=== PATIENT | female | born 1945 | race Caucasian/White ===

== ENCOUNTER 2017-05-06 10:33 | Emergency (ER) | payer MEDICARE, OTHER ==
--- NOTE | 2017-05-07 03:44 | ER ---
DATE SEEN: 05/06/2017 HISTORY OF PRESENT ILLNESS: Kelly has had severe pain in her left mandible. It progressively got worse in the last week. She has been seen by an ENT specialist this week, and they put her on Augmentin plus steroid drops in her ears plus otic drops. She denies fever. She has not changed. She denies dizziness. In the past, she has also been seen by several other specialists and had CAT scans, as they thought perhaps she might have mastoiditis and it was negative. She has not had ear surgery. No history of trauma to her ear. PAST MEDICAL HISTORY: No history of high temperature. ALLERGIES: The patient denies allergies or seasonal allergies. CURRENT MEDICATIONS: 1. Augmentin. 2. Cipro ear drops. 3. Dexamethasone ear drops. 4. P.o. Augmentin 875 mg b.i.d. 5. She takes losartan daily. From today's notes, her blood pressure is elevated and became more concerned. She has extensive pain with 8/10 discomfort in the left external ear and left ear pain. PAST SURGICAL HISTORY: Negative. REVIEW OF SYSTEMS: Negative except for noted above. The patient wears glasses and has slight decreased hearing. She denies dizziness, flushing of her face. CARDIAC: She denies cardiovascular symptoms. She has had no cough, no chest pain, no irregular rate or heartbeat. GASTROINTESTINAL/NEUROLOGIC: No nausea, vomiting, lightheadedness, syncope, near syncope, or dizziness. She denies abdominal discomfort. Denies vomiting, diarrhea, constipation, or change in bowels or urinary tract symptoms or neurological symptoms. No history of seizures or headache. PHYSICAL EXAMINATION: VITAL SIGNS: Blood pressure was 207/99 and repeat blood pressure was 167/82, heart rate was 89, respirations were 16, oxygen saturation was 100%, and temperature was 36.7 degrees centigrade. The patient is 81.6 kilos. GENERAL: As noted above. Blood pressure as above. A woman who is holding her hand on her neck. HEENT: Submandibular area at the angle of the jaw and inferior to this is mildly tender. The parotid gland is not tender. The TMJ is moderately tender. No increased TMJ joint pain or motion or translation forwarded anteriorly and posteriorly with gentle traction with her mouth open. Oropharynx was without erythema. No cervical adenopathy. No adenopathy. The TMs are normal in appearance. There is moderate wax in the external canal. There is no perforation. It initially looked like a perforation as if there was a slight window one of the wax films, but it was soupy wax filled. TMJ does not move with Valsalva maneuver. The right TM has normal appearance. She has no mastoid tenderness or percussions. Traction on the external ear was without tenderness. LUNGS: Clear without rales, rhonchi, or wheezes. HEART: S1 and S2. No murmur. No irregular rate or rhythm. ABDOMEN: Soft. No guarding. No abdominal discomfort. EXTREMITIES: Without edema. ASSESSMENT: 1. Otitis media, treated. 2. Residual pain in temporomandibular joint. Rule out dental malocclusion. I did test her occlusion and she does not have pain with grinding her teeth. No history of bruxism. No history of vesicles, but she potentially could have early expression of herpes zoster. No lesions are demonstrated. No mastoid tenderness or percussion. No dental abnormality with percussion of her teeth. Neck is supple. No pain with pressure on the second and first and third cervical vertebral spinous process or paraspinal muscles. On range of motion of neck, the range of motion with rotation, extension, flexion, and hyperextension is normal. No bruits in neck to suggest any abnormality. No cardiac symptoms to suggest cardiac etiology for patient's pain. Thus after we explained multiple differential diagnosis, I think most of her pain is related to TMJ joint. However, there is more pain under the angle of the jaw. There is no suggestion of submaxillary or submandibular joint pain or intraoral pain or pain within the tonsillar fossa intraorally. There is no buccinator abnormality. No parotid inflammation or tenderness or symptoms to suggest parotiditis. No pus was demonstrated from the Stensen duct. PLAN: 1. Most likely the pain is related to patient's TMJ. The patient will be treated accordingly. She also has elevated blood pressure secondary to her pain. It did come down after she was in the ED from 200 down to 167/82. She has been advised to take an extra pill of her losartan today. 2. To use Vicodin aggressively one to two tablets q.4-6 hours p.r.n. pain. 3. Continue her Augmentin and Cortisporin Otic drops. 4. Use Toradol 10 mg q.6 hours, 16 tablets or if she does not like this, to try Indocin 25 mg one to two capsules t.i.d. She has not used either Toradol or Indocin together. 5. Follow up with doctor in 3 to 7 days or earlier if worse. The patient was seen at 1115 hours in the morning. /[id number] VANESSA/SALLY
== END 2017-05-06 12:24 | disposition home or self-care (01) ==
LOC: FB.ED 10:33
DX: M26.622 Arthralgia of left temporomandibular joint (principal); H66.90 Otitis media, unspecified, unspecified ear
CPT/HCPCS: 99282; 99283

== ENCOUNTER 2018-12-15 16:30 | Emergency (ER) | payer MEDICARE, OTHER ==
[2018-12-15] MEDS ORDERED: Nitrofurantoin Monohydrate/Macrocrystalline 100 MG Cap PO ONE (16:31)
[2018-12-15] MEDS ORDERED: Acetaminophen/HYDROcodone 325-5 MG Tab PO ONE (16:31)
--- NOTE | 2018-12-15 16:47 | EDM.PDOC ---
ED HPI GENERAL MEDICAL PROBLEM - General Stated Complaint: FACIAL DROOP Time Seen by Provider: 12/15/18 16:45 - Related Data Allergies Allergy/AdvReac Type Severity Reaction Status Date / Time No Known Allergies Allergy Verified 05/06/17 10:57 Home Meds: Home Meds Hydrocodone/Acetaminophen [Hydrocodon-Acetaminophen 5-325] 1 each PO Q4HR #16 tablet 05/06/17 [Rx] Indomethacin [Indocin] 50 mg PO BID PRN #20 cap 05/06/17 [Rx] Ketorolac [Toradol] 10 mg PO Q6H PRN #16 tab 05/06/17 [Rx] Past Medical History HEENT History: Reports: Otitis Media Cardiovascular History: Reports: Hypertension Social & Family History - Caffeine Use Caffeine Use: Reports: Coffee EKG INTERPRETATION EKG Date: 12/15/18 Time: 16:36 Rhythm: NSR Rate (Beats/Min): 88 [place]: Normal P-Wave: Present QRS: Normal ST-T: Normal QT: Normal Comparison: NA - No Prior EKG EKG Interpretation Comments: Normal sinus rhythm with a rate of 88. Normal axis. Normal intervals. LVH. No old EKG for comparison. Departure - Discharge Information Referrals: Mikey King MD [Primary Care Provider] -
--- NOTE | 2018-12-15 17:05 | EDM.PDOC ---
ED HPI GENERAL MEDICAL PROBLEM - General Chief Complaint: Headache Stated Complaint: FACIAL DROOP Time Seen by Provider: 12/15/18 16:45 Source of Information: Reports: Patient History Limitations: Reports: No Limitations - History of Present Illness INITIAL COMMENTS - FREE TEXT/NARRATIVE: 73-year-old female who reports on Monday of this week she began to have left facial and left neck pain associated with headache. She reports that she has had this pain many times in the past and has been told that she has trigeminal neuralgia but she has not had it for some time. The pain is a sharp pain and she seems to have episodes of this pain which radiated from her face all over the left side of her head and are quite severe. She reports the pain as a 10 over 10 at this time. He last for a variable period of time and then seemed to fade away. She reports that she has been getting control of her pain with ibuprofen but the pain seemed to be worse today and she came to the walk-in clinic where she was evaluated. The walk-in clinic provider noted that her the patient's blood pressure was elevated and the provider felt that the patient had a left sided facial droop and some slurred speech and the patient was brought over to the emergency department for further evaluation. The patient tells me that the severe sharp pain that she had has resolved for now (the spell has resolved) and she now has a sore pain in her left posterior neck and occiput area that she rates as a 1/10. She has had no nausea or vomiting. She's had no problems thinking. She's had no problems walking. There have been no vision problems. She denies any problems speaking and she appears to have a normal speech pattern to me. She has no chest pain. She has no shortness of breath. She reports that she has taken her vacations as directed today. There are no other associated signs or symptoms. There are no other modifying factors. Onset: Other (12/12/2018) Duration: Intermittent (Episodes as mentioned above but they are not going away) Location: Reports: Head, Face, Neck Quality: Reports: Other (Sharp and shooting when she has her episodes. Sore now) Improves with: Reports: Heat Therapy, Medication (Ibuprofen) Worsens with: Reports: None Context: Reports: Other (No relation to any particular activity or event) Associated Symptoms: Reports: Headaches Treatments BUTCHER FISH: Reports: NSAIDS - Related Data Allergies Allergy/AdvReac Type Severity Reaction Status Date / Time No Known Allergies Allergy Verified 12/15/18 16:48 Home Meds: Home Meds Acetaminophen/HYDROcodone [[place] 325-5 MG] 1 - 2 tab PO Q6H PRN #10 tab [Rx] Furosemide 20 mg PO BID 12/15/18 [History] Gabapentin [Neurontin] 300 mg PO BID #60 cap 12/15/18 [Rx] Losartan [Cozaar] 25 mg PO DAILY 12/15/18 [History] Metoprolol Tartrate 20 mg PO BID 12/15/18 [History] Simvastatin 20 mg PO DAILY 12/15/18 [History] Past Medical History Cardiovascular History: Reports: High Cholesterol, Hypertension, Other (See Below) (Peripheral edema) Neurological History: Reports: Other (See Below) (Reported trigeminal neuralgia) Oncologic (Cancer) History: Reports: Breast - Past Surgical History Female Surgical History: Reports: Oophorectomy (With sounds like an ovarian tumor that was removed), Other (See Below) (Right breast lumpectomy for breast cancer) Musculoskeletal Surgical History: Reports: Knee Replacement (Left partial knee replacement) Social & Family History - Tobacco Use Smoking Status *Q: Never Smoker - Caffeine Use Caffeine Use: Reports: Coffee - Alcohol Use Alcohol Use History: Yes Alcohol Use Frequency: Rarely - Living Situation & Occupation Occupation: Retired ED ROS GENERAL - Review of Systems Review Of Systems: See Below Constitutional: Reports: No Symptoms HEENT: Reports: Other (Left facial pain) Respiratory: Reports: No Symptoms Cardiovascular: Reports: No Symptoms GI/Abdominal: Reports: No Symptoms Musculoskeletal: Reports: Other (Swelling legs that is intermittent) Skin: Reports: No Symptoms Neurological: Reports: Headache, Numbness (Left facial numbness that she reports occurs when she has these episodes that she feels is trigeminal neuralgia) Hematologic/Lymphatic: Reports: No Symptoms Immunologic: Reports: No Symptoms - Physical Exam Exam: See Below Exam Limited By: No Limitations General Appearance: Alert, WD/WN, No Apparent Distress Eye Exam: Bilateral Eye: EOMI, Normal Inspection, PERRL Ears: Normal External Exam Nose: Normal Inspection, Normal Mucosa Throat/Mouth: Normal Inspection, Normal Oropharynx, Normal Voice, No Airway Compromise Head Exam: Atraumatic, Normocephalic Neck: Normal Inspection, Supple, Non-Tender, Full Range of Motion Respiratory/Chest: No Respiratory Distress, Lungs Clear, Normal Breath Sounds, No Accessory Muscle Use, Chest Non-Tender Cardiovascular: Normal Peripheral Pulses, Regular Rate, Rhythm, No JVD GI/Abdominal: Normal Bowel Sounds, Soft, Non-Tender, No Mass Neuro Exam (Abbreviated): Alert, Oriented, CN II-XII Intact, Normal Cognition, Normal Gait, No Motor/Sensory Deficits, Other (Face is symmetric. There is no pronator drift. There is no dysmetria. There are no visual field deficits.) Back Exam: Normal Inspection Extremities: Normal Inspection, Normal Range of Motion, Non-Tender, No Pedal Edema, Normal Capillary Refill Psychiatric: Normal Affect Skin Exam: Warm, Dry, Intact, Normal Color, No Rash EKG INTERPRETATION EKG Date: 12/15/18 Time: 16:36 Rhythm: NSR Rate (Beats/Min): 88 [place]: Normal P-Wave: Present QRS: Normal ST-T: Normal QT: Normal Comparison: NA - No Prior EKG EKG Interpretation Comments: Normal sinus rhythm with a rate of 88. There is a normal axis. There are normal intervals. There is LVH. There are no old EKGs for comparison Course - Vital Signs Last Recorded V/S: Last Vital Signs Temp 36.9 C 12/15/18 16:30 Pulse 102 H 12/15/18 16:30 Resp 20 12/15/18 16:30 BP 189/96 H 12/15/18 16:30 Pulse Ox 98 12/15/18 16:30 - Orders/Labs/Meds Orders: Active Orders 24 hr Category Date Time Status EKG Documentation Completion [RC] ASDIRECTED Care 12/15/18 17:07 Active Ang Head [CT] Stat Exams 12/15/18 17:57 Ordered Ang Neck [CT] Stat Exams 12/15/18 17:57 Taken Head wo Cont [CT] Stat Exams 12/15/18 17:06 Taken Sodium Chloride 0.9% [Saline Flush] Med 12/15/18 17:06 Active 10 ml FLUSH ASDIRECTED PRN Peripheral IV Insertion Adult [OM.PC] Routine Oth 12/15/18 17:06 Ordered EKG 12 Lead [EK] Routine Ther 12/15/18 17:06 Ordered Medication Orders Sodium Chloride (Saline Flush) 10 ml FLUSH ASDIRECTED PRN PRN Reason: Keep Vein Open Last Admin: 12/15/18 16:45 Dose: 10 ml Labs: Laboratory Tests 12/15/18 12/15/18 12/15/18 Range/Units 16:34 16:34 17:38 WBC 10.2 (4.5-12.0) X10-3/uL RBC 4.77 (3.23-5.20) x10(6)uL Hgb 14.0 (11.5-15.5) g/dL Hct 41.8 (30.0-51.3) % MCV 87.8 (80-96) fL MCH 29.3 (27.7-33.6) pg MCHC 33.4 (32.2-35.4) g/dL RDW 12.3 (11.5-15.5) % Plt Count 348 (125-369) X10(3)uL MPV 8.1 (7.4-10.4) fL Neut % (Auto) 63.2 (46-82) % Lymph % (Auto) 26.3 (13-37) % [place] % (Auto) 8.1 (4-12) % Eos % (Auto) 2 (1.0-5.0) % Baso % (Auto) 0 (0-2) % Neut # (Auto) 6.5 (1.6-8.3) # Lymph # (Auto) 2.7 (0.6-5.0) # [place] # (Auto) 0.8 (0.0-1.3) # Eos # (Auto) 0.2 (0.0-0.8) # Baso # (Auto) 0.0 (0.0-0.2) # Sodium 140 (135-145) mmol/L Potassium 3.7 (3.5-5.3) mmol/L Chloride 104 (100-110) mmol/L Carbon Dioxide 28 (21-32) mmol/L BUN 24 H (7-18) mg/dL Creatinine 0.8 (0.55-1.02) mg/dL Est Cr Clr Drug Dosing 52.58 mL/min Estimated GFR (MDRD) > 60 (>60) BUN/Creatinine Ratio 30.0 H (9-20) Glucose 102 (80-116) mg/dL Calcium 9.6 (8.6-10.2) mg/dL Total Bilirubin 0.3 (0.1-1.3) mg/dL AST 18 (5-25) IU/L ALT 29 (12-36) U/L Alkaline Phosphatase 110 (56-112) IU/L Total Protein 8.0 (6.0-8.0) g/dL Albumin 4.1 (3.2-4.6) g/dL Globulin 3.9 g/dL Albumin/Globulin Ratio 1.1 Urine Color Yellow (YELLOW) Urine Appearance Clear (CLEAR) Urine pH 5.0 (5.0-6.5) Ur Specific [place] 1.020 (1.010-1.025) Urine Protein Negative (NEGATIVE) mg/dL Urine Glucose (UA) Normal (NORMAL) mg/dL Urine Ketones Negative (NEGATIVE) mg/dL Urine Occult Blood Moderate H (NEGATIVE) Urine Nitrite Negative (NEGATIVE) Urine Bilirubin Negative (NEGATIVE) Urine Urobilinogen Normal (NEGATIVE) mg/dL Ur Leukocyte Esterase Negative (NEGATIVE) Urine RBC 0-5 (0-5) Urine WBC 0-5 (0-5) Ur Squamous Epith Cells Few H (NS,R,O) Urine Bacteria Rare H (NS) Meds: Medications Generic Name Dose Route Start Last Admin Trade Name Freq PRN Reason Stop Dose Admin Sodium Chloride 10 ml 12/15/18 17:06 12/15/18 16:45 Saline Flush FLUSH 10 ml ASDIRECTED PRN Administration Keep Vein Open Discontinued Medications Generic Name Dose Route Start Last Admin Trade Name Freq PRN Reason Stop Dose Admin Gabapentin 600 mg 12/15/18 18:18 12/15/18 18:24 Neurontin PO 12/15/18 18:19 600 mg ONETIME ONE Administration Hydromorphone HCl 0.5 mg 12/15/18 18:18 12/15/18 18:24 Dilaudid IVPUSH 12/15/18 18:19 0.5 mg ONETIME ONE Administration Sodium Chloride 500 mls @ 999 mls/hr 12/15/18 17:58 12/15/18 18:09 Normal Saline IV 12/15/18 18:28 999 mls/hr .BOLUS ONE Administration Iopamidol 75 ml 12/15/18 18:04 12/15/18 18:16 Isovue-370 (76%) IV 12/15/18 18:05 75 ml ONETIME ONE Administration Ondansetron HCl 4 mg 12/15/18 18:18 12/15/18 18:24 Zofran IVPUSH 12/15/18 18:19 4 mg ONETIME ONE Administration - Radiology Interpretation Free Text/Narrative:: CT scan of head showed no acute abnormality per the radiologist. - Re-Assessments/Exams Free Text/Narrative Re-Assessment/Exam: 12/15/18 18:05: Patient with recurrence of the severe sharp and shooting pain over the left face and head. CTA of her neck has been performed and the results are pending at this time. I will order pain medication IV and will also order Neurontin by mouth. This certainly appears to be trigeminal neuralgia 12/15/18 18:55: Pain is much improved after IV Dilaudid and the oral Neurontin. CTA of the head was read as normal. CTA of the neck is pending still. 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 She remains quite comfortable after the medications and the plan will be to discharge her on Neurontin 300 mg by mouth 3 times a day and with her coat on for more severe pain. She was urged to call her primary doctor Monday to arrange for follow-up and/or referral to a neurologist. Departure - Departure Time of Disposition: 19:25 Disposition: Home, Self-Care 01 Condition: Good Clinical Impression: Facial pain syndrome, Neuralgic facial pain Headache Qualifiers: Headache type: other headache syndrome Qualified Code(s): G44.89 - Other headache syndrome Hypertension Qualifiers: Hypertension type: unspecified Qualified Code(s): I10 - Essential (primary) hypertension - Discharge Information Prescriptions: Acetaminophen/HYDROcodone [[place] 325-5 MG] 1 - 2 tab PO Q6H PRN #10 tab PRN Reason: Moderate to severe pain Gabapentin [Neurontin] 300 mg PO BID #60 cap Instructions: Trigeminal Neuralgia Referrals: Mikey King MD [Primary Care Provider] - Forms: ED Department Discharge Additional Instructions: Your blood tests, urine test and EKG were reassuringly normal. CT scan of your head was normal. The CT angiogram of your head and neck showed some blockages or stenosis in your carotid arteries going to your brain with normal appearing blood vessels within your brain. These blockages need to be scuffs and followed up by your primary doctor but I do not feel that they are the cause of your symptoms today. As we discussed, I feel your symptoms are most probably to trigeminal neuralgia. I am placing you on a medication to hopefully suppress this and help with the pain (Neurontin). I have also given you a prescription and a take home pack he medication (hydrocodone 5/325). You may also continue to take the ibuprofen as needed for pain. Follow-up with your primary doctor this next week. Back to the emergency department for marked increase in pain, unrelenting vomiting, fever, localized area of weakness or numbness or any other concerning sign or symptom. - My Orders Last 24 Hours: My Active Orders 12/15/18 17:06 Head wo Cont [CT] Stat Sodium Chloride 0.9% [Saline Flush] 10 ml FLUSH ASDIRECTED PRN Peripheral IV Insertion Adult [OM.PC] Routine EKG 12 Lead [EK] Routine 12/15/18 17:07 EKG Documentation Completion [RC] ASDIRECTED 12/15/18 17:57 Ang Head [CT] Stat Ang Neck [CT] Stat - Assessment/Plan Last 24 Hours: My Active Orders 12/15/18 17:06 Head wo Cont [CT] Stat Sodium Chloride 0.9% [Saline Flush] 10 ml FLUSH ASDIRECTED PRN Peripheral IV Insertion Adult [OM.PC] Routine EKG 12 Lead [EK] Routine 12/15/18 17:07 EKG Documentation Completion [RC] ASDIRECTED 12/15/18 17:57 Ang Head [CT] Stat Ang Neck [CT] Stat
[2018-12-15] MEDS ORDERED: Sodium Chloride 0.9% 10 ML Syringe FLUSH PRN (17:06)
[2018-12-15] MEDS ORDERED: Sodium Chloride 0.9% 500 ML IV ONE (17:58)
[2018-12-15] MEDS ORDERED: Iopamidol 755 Mg/ML 75 ML Bottle IV ONE (18:04)
[2018-12-15] MEDS ORDERED: Gabapentin 300 MG Cap PO ONE (18:18)
[2018-12-15] MEDS ORDERED: Ondansetron 4 MG/2 ML SDV IVPUSH ONE (18:18)
[2018-12-15] MEDS ORDERED: HYDROmorphone 2 MG/ML SDV IVPUSH ONE (18:18)
== END 2018-12-15 19:33 | disposition home or self-care (01) ==
LOC: FB.ED 16:30
DX: G44.89 Other headache syndrome (principal); G50.0 Trigeminal neuralgia; I10 Essential (primary) hypertension; Z79.899 Other long term (current) drug therapy
CPT/HCPCS: 36415; 70450; 70496; 70498; 80053; 81001; 85025; 93005; 96361; 96374; 96375; 99284; A9270; J1170; J2405; J7040; Q9967

== ENCOUNTER 2020-01-15 03:58 | Emergency (ER) | payer MEDICARE, OTHER ==
[2020-01-15] MEDS ORDERED: Ondansetron 4 MG/2 ML SDV IVPUSH ONE (04:26)
[2020-01-15] MEDS ORDERED: Morphine 2 MG/ML SYRINGE IVPUSH ONE (04:26)
[2020-01-15] MEDS ORDERED: Sodium Chloride 0.9% 1,000 ML IV SCH (04:45)
[2020-01-15] MEDS ORDERED: HYDROmorphone 2 MG/ML SDV IVPUSH STA (05:15)
[2020-01-15] MEDS ORDERED: Iopamidol 755 Mg/ML 100 ML Bottle IV ONE (05:55)
--- NOTE | 2020-01-15 07:05 | EDM.PDOC ---
ED HPI GENERAL MEDICAL PROBLEM - General Chief Complaint: Abdominal Pain Stated Complaint: ABDOMINAL PAIN Time Seen by Provider: 01/15/20 04:15 Source of Information: Reports: Patient History Limitations: Reports: No Limitations - History of Present Illness INITIAL COMMENTS - FREE TEXT/NARRATIVE: Patient presented to the ED because of pain over the left flank area which started at about 0130. The pain is sharp, 10/10, with associated nausea but no vomiting. She also c/o of diarrhea for the past 3 days. There is no associated fever or chills, no cough or cold symptoms. Left Lower Abdomen Pain Score (Numeric/FACES): 8 - Related Data Allergies Allergy/AdvReac Type Severity Reaction Status Date / Time No Known Allergies Allergy Verified 01/15/20 04:14 Home Meds: Home Meds Furosemide 20 mg PO BID 12/15/18 [History] Losartan [Cozaar] 25 mg PO DAILY 12/15/18 [History] Metoprolol Tartrate 25 mg PO BID 12/15/18 [History] Acetaminophen/oxyCODONE [Percocet 325-5 MG] 1 each PO Q4H #10 tab 01/15/20 [Rx] Aspirin [Halfprin] 81 mg PO DAILY 01/15/20 [History] Cyanocobalamin (Vitamin B-12) [Vitamin B-12] 5,000 mcg PO DAILY 01/15/20 [History] Ondansetron [Zofran ODT] 4 mg PO Q4H PRN #5 tab.dis 01/15/20 [Rx] Tamsulosin HCl [Flomax] 0.4 mg PO QAM #10 cap.er.24h 01/15/20 [Rx] atorvaSTATin [Lipitor] 40 mg PO DAILY 01/15/20 [History] Past Medical History HEENT History: Reports: Otitis Media Cardiovascular History: Reports: High Cholesterol, Hypertension, Other (See Below) Neurological History: Reports: Other (See Below) Oncologic (Cancer) History: Reports: Breast - Past Surgical History Female Surgical History: Reports: Oophorectomy, Other (See Below) Musculoskeletal Surgical History: Reports: Knee Replacement Social & Family History - Family History Family Medical History: Noncontributory - Tobacco Use Smoking Status *Q: Never Smoker - Caffeine Use Caffeine Use: Reports: Coffee - Recreational Drug Use Recreational Drug Use: No - Living Situation & Occupation Occupation: Retired ED ROS GENERAL - Review of Systems Review Of Systems: See Below Constitutional: Reports: No Symptoms HEENT: Reports: No Symptoms Respiratory: Reports: No Symptoms Cardiovascular: Reports: No Symptoms Endocrine: Reports: No Symptoms GI/Abdominal: Reports: Diarrhea, Nausea Skin: Reports: No Symptoms Neurological: Reports: No Symptoms ED EXAM, GI/ABD - Physical Exam Exam: See Below Exam Limited By: No Limitations General Appearance: Alert, No Apparent Distress Ears: Normal External Exam, Normal Canal, Hearing Grossly Normal Nose: Normal Inspection, Normal Mucosa Throat/Mouth: Normal Inspection, Normal Lips, Normal Teeth Head: Atraumatic, Normocephalic Neck: Normal Inspection, Supple, Non-Tender, Full Range of Motion Respiratory/Chest: No Respiratory Distress, Lungs Clear, Normal Breath Sounds Cardiovascular: Normal Peripheral Pulses, Regular Rate, Rhythm, No Edema, No Gallop GI/Abdominal Exam: Normal Bowel Sounds, Soft, No Organomegaly, Other (LCVAT) Back Exam: Normal Inspection, Full Range of Motion Extremities: Normal Inspection, Normal Range of Motion Course - Vital Signs Text/Narrative:: Labs/Abd CT was discussed with patient and verbalized full understanding NS 1 L bolus Zofran 4 mg IV x1 Morphine 2 mg IV x1 Dilaudid 1 mg IV x1 Last Recorded V/S: Last Vital Signs Temp 36.6 C 01/15/20 07:06 Pulse 98 01/15/20 07:06 Resp 18 01/15/20 07:06 BP 142/69 H 01/15/20 07:06 Pulse Ox 95 01/15/20 07:06 - Orders/Labs/Meds Orders: Active Orders 24 hr Category Date Time Status Abdomen Pelvis w Cont [CT] Stat Exams 01/15/20 04:51 Taken Sodium Chloride 0.9% [Normal Saline] 1,000 ml Med 01/15/20 04:45 Active IV ASDIRECTED Medication Orders Sodium Chloride (Normal Saline) 1,000 mls @ 999 mls/hr IV ASDIRECTED DYANA Last Admin: 01/15/20 04:58 Dose: 999 mls/hr Documented by: CHENTE Labs: Laboratory Tests 01/15/20 01/15/20 01/15/20 Range/Units 04:10 04:55 04:55 WBC 13.8 H (4.5-12.0) X10-3/uL RBC 4.44 (3.23-5.20) x10(6)uL Hgb 12.8 (11.5-15.5) g/dL Hct 39.1 (30.0-51.3) % MCV 88.0 (80-96) fL MCH 28.9 (27.7-33.6) pg MCHC 32.8 (32.2-35.4) g/dL RDW 12.2 (11.5-15.5) % Plt Count 295 (125-369) X10(3)uL MPV 7.6 (7.4-10.4) fL Neut % (Auto) 84.6 H (46-82) % Lymph % (Auto) 10.2 L (13-37) % Branch % (Auto) 4.5 (4-12) % Eos % (Auto) 1 (1.0-5.0) % Baso % (Auto) 0 (0-2) % Neut # (Auto) 11.7 H (1.6-8.3) # Lymph # (Auto) 1.4 (0.6-5.0) # Branch # (Auto) 0.6 (0.0-1.3) # Eos # (Auto) 0.1 (0.0-0.8) # Baso # (Auto) 0.0 (0.0-0.2) # Sodium 139 (135-145) mmol/L Potassium 3.6 (3.5-5.3) mmol/L Chloride 103 (100-110) mmol/L Carbon Dioxide 27 (21-32) mmol/L BUN 21 H (7-18) mg/dL Creatinine 1.0 (0.55-1.02) mg/dL Est Cr Clr Drug Dosing 41.45 mL/min Estimated GFR (MDRD) 54 L (>60) BUN/Creatinine Ratio 21.0 H (9-20) Glucose 141 H (80-116) mg/dL Calcium 9.4 (8.6-10.2) mg/dL Total Bilirubin 0.5 (0.1-1.3) mg/dL AST 21 D (5-25) IU/L ALT 26 D (12-36) U/L Alkaline Phosphatase 119 H (56-112) IU/L Total Protein 7.6 (6.0-8.0) g/dL Albumin 3.9 (3.2-4.6) g/dL Globulin 3.7 g/dL Albumin/Globulin Ratio 1.1 Amylase 43 (25-115) U/L Lipase (73-393) U/L Urine Color Yellow (YELLOW) Urine Appearance Slightly cloudy (CLEAR) Urine pH 5.0 (5.0-6.5) Ur Specific [place] 1.025 (1.010-1.025) Urine Protein Negative (NEGATIVE) mg/dL Urine Glucose (UA) Normal (NORMAL) mg/dL Urine Ketones Negative (NEGATIVE) mg/dL Urine Occult Blood Moderate H (NEGATIVE) Urine Nitrite Negative (NEGATIVE) Urine Bilirubin Negative (NEGATIVE) Urine Urobilinogen Normal (NEGATIVE) mg/dL Ur Leukocyte Esterase Negative (NEGATIVE) Urine RBC 5-10 H (0-5) Urine WBC 0-5 (0-5) Ur Squamous Epith Cells Few H (NS,R,O) Urine Bacteria Few H (NS) Urine Mucus Few H (NS) 01/15/20 Range/Units 04:55 WBC (4.5-12.0) X10-3/uL RBC (3.23-5.20) x10(6)uL Hgb (11.5-15.5) g/dL Hct (30.0-51.3) % MCV (80-96) fL MCH (27.7-33.6) pg MCHC (32.2-35.4) g/dL RDW (11.5-15.5) % Plt Count (125-369) X10(3)uL MPV (7.4-10.4) fL Neut % (Auto) (46-82) % Lymph % (Auto) (13-37) % Branch % (Auto) (4-12) % Eos % (Auto) (1.0-5.0) % Baso % (Auto) (0-2) % Neut # (Auto) (1.6-8.3) # Lymph # (Auto) (0.6-5.0) # Branch # (Auto) (0.0-1.3) # Eos # (Auto) (0.0-0.8) # Baso # (Auto) (0.0-0.2) # Sodium (135-145) mmol/L Potassium (3.5-5.3) mmol/L Chloride (100-110) mmol/L Carbon Dioxide (21-32) mmol/L BUN (7-18) mg/dL Creatinine (0.55-1.02) mg/dL Est Cr Clr Drug Dosing mL/min Estimated GFR (MDRD) (>60) BUN/Creatinine Ratio (9-20) Glucose (80-116) mg/dL Calcium (8.6-10.2) mg/dL Total Bilirubin (0.1-1.3) mg/dL AST (5-25) IU/L ALT (12-36) U/L Alkaline Phosphatase (56-112) IU/L Total Protein (6.0-8.0) g/dL Albumin (3.2-4.6) g/dL Globulin g/dL Albumin/Globulin Ratio Amylase (25-115) U/L Lipase 190 (73-393) U/L Urine Color (YELLOW) Urine Appearance (CLEAR) Urine pH (5.0-6.5) Ur Specific [place] (1.010-1.025) Urine Protein (NEGATIVE) mg/dL Urine Glucose (UA) (NORMAL) mg/dL Urine Ketones (NEGATIVE) mg/dL Urine Occult Blood (NEGATIVE) Urine Nitrite (NEGATIVE) Urine Bilirubin (NEGATIVE) Urine Urobilinogen (NEGATIVE) mg/dL Ur Leukocyte Esterase (NEGATIVE) Urine RBC (0-5) Urine WBC (0-5) Ur Squamous Epith Cells (NS,R,O) Urine Bacteria (NS) Urine Mucus (NS) Meds: Medications Generic Name Dose Route Start Last Admin Trade Name Freq PRN Reason Stop Dose Admin Sodium Chloride 1,000 mls @ 999 mls/hr 01/15/20 04:45 01/15/20 04:58 Normal Saline IV 999 mls/hr ASDIRECTED DYANA Administration Discontinued Medications Generic Name Dose Route Start Last Admin Trade Name Freq PRN Reason Stop Dose Admin Hydromorphone HCl 1 mg 01/15/20 05:15 01/15/20 05:20 Dilaudid IVPUSH 01/15/20 05:16 1 mg NOW STA Administration Iopamidol 100 ml 01/15/20 05:55 01/15/20 06:08 Isovue-370 (76%) IV 01/15/20 05:56 100 ml . DIRECTED ONE Administration Morphine Sulfate 2 mg 01/15/20 04:26 01/15/20 04:30 Morphine IVPUSH 01/15/20 04:27 2 mg ONETIME ONE Administration Ondansetron HCl 4 mg 01/15/20 04:26 01/15/20 04:29 Zofran IVPUSH 01/15/20 04:27 4 mg ONETIME ONE Administration Departure - Departure Time of Disposition: 07:00 Disposition: Home, Self-Care 01 Condition: Good Clinical Impression: Nephrolithiasis - Discharge Information Prescriptions: Tamsulosin HCl [Flomax] 0.4 mg PO QAM #10 cap.er.24h Acetaminophen/oxyCODONE [Percocet 325-5 MG] 1 each PO Q4H #10 tab Ondansetron [Zofran ODT] 4 mg PO Q4H PRN #5 tab.dis PRN Reason: Nausea Instructions: Kidney Stones, [id number] Referrals: Mikey King MD [Primary Care Provider] - Forms: ED Department Discharge Additional Instructions: Please read dischare instructions on kidney stone increase oral fluids zofran ODT 4 mg every 4 hours as needed for nausea Percococet 5/325, take 1-2 tablets every 4-6 hours as needed for pain Flomax 1 tablet daily Follow up with urology this week, ask your doctor for a referral Sepsis Event Note (ED) - Evaluation Sepsis Screening Result: No Definite Risk - Focused Exam Vital Signs: Vital Signs Temp Pulse Resp BP Pulse Ox 01/15/20 07:06 36.6 C 98 18 142/69 H 95 01/15/20 05:20 86 157/87 H 01/15/20 04:14 36.4 C 77 20 189/70 H 95 - My Orders Last 24 Hours: My Active Orders 01/15/20 04:45 Sodium Chloride 0.9% [Normal Saline] 1,000 ml IV ASDIRECTED 01/15/20 04:51 Abdomen Pelvis w Cont [CT] Stat - Assessment/Plan Last 24 Hours: My Active Orders 01/15/20 04:45 Sodium Chloride 0.9% [Normal Saline] 1,000 ml IV ASDIRECTED 01/15/20 04:51 Abdomen Pelvis w Cont [CT] Stat
== END 2020-01-15 07:13 | disposition home or self-care (01) ==
LOC: FB.ED 03:58
DX: N13.2 Hydronephrosis with renal and ureteral calculous obstruction (principal); E78.00 Pure hypercholesterolemia, unspecified; I10 Essential (primary) hypertension; Z79.82 Long term (current) use of aspirin; Z79.899 Other long term (current) drug therapy
CPT/HCPCS: 36415; 74177; 80053; 81001; 82150; 83690; 85025; 96361; 96374; 96375; 99284-25; J1170; J2270; J2405; J7030; Q9967

== ENCOUNTER 2024-11-28 16:45 | Emergency (ER) | payer MEDICARE, OTHER ==
[2024-11-28] MEDS ORDERED: Sodium Chloride 0.9% 10 ML Syringe FLUSH PRN (16:55)
[2024-11-28] MEDS: Aspirin 81 MG Tab.Chew PO ONE (17:03)
[2024-11-28] MEDS: Nitroglycerin 0.4 MG Tab.SL SL ONE (17:04)
[2024-11-28 17:28] LABS: BASOPHILS ABSOLUTE AUTO 0.1 x10-3/uL (0.0-0.1); BASOPHILS PERCENT AUTO 0.6 % (0.2-1.5); EOSINOPHILS ABSOLUTE AUTO 0.1 x10-3/uL (0.0-0.8); EOSINOPHILS PERCENT AUTO 1.4 % (0.6-8.1); HEMATOCRIT 34.7 % (34.2-48.2); HEMOGLOBIN 11.7 g/dL (11.4-15.5); LYMPHOCYTES ABSOLUTE AUTO 1.7 x10-3/uL (1.0-4.4); LYMPHOCYTES PERCENT AUTO 20.1 % (18.4-52.1); MEAN CORPUSCULAR HEMOGLOBIN 29.4 pg (23.9-33.9); MEAN CORPUSCULAR HGB CONC 33.8 g/dL (31.9-34.8); MEAN CORPUSCULAR VOLUME 86.9 fL (76.7-100.5); MONOCYTES ABSOLUTE AUTO 0.9 x10-3/uL (0.3-1.0); NEUTROPHILS ABSOLUTE AUTO 5.8 x10-3/uL (1.5-6.3); NEUTROPHILS PERCENT AUTO 67.9 % (30.8-76.2); PLATELET COUNT,PLT 306 x10(3)uL (151-488); RED BLOOD CELL COUNT 3.99 x10(6)uL (3.60-5.20); RED CELL DISTRIBUTION WIDTH 13.4 % (12.3-16.5); WHITE BLOOD CELL COUNT,WBC 8.5 x10-3/uL (3.0-10.3)
[2024-11-28 17:37] LABS: BLOOD UREA NITROGEN,BUN 37 mg/dL (7-18); BUN/CREATININE RATIO 20.6 (9-20); CALCIUM 10.4 mg/dL (8.6-10.2); CARBON DIOXIDE,CO2 33 mmol/L (21-32); CHLORIDE,CL 100 mmol/L (100-110); CREATININE 1.8 mg/dL (0.55-1.02); ESTIMATED GFR 28 mL/min (>60); GLUCOSE RANDOM 109 mg/dL (80-116); POTASSIUM,K 3.1 mmol/L (3.5-5.3); SODIUM,NA 140 mmol/L (135-145)
[2024-11-28] MEDS: Sodium Chloride 0.9% 1,000 ML IV SCH (17:40)
[2024-11-28 17:43] LABS: A/G RATIO 1.2; ALANINE AMINOTRANSFERASE,ALT 25 U/L (12-36); ALBUMIN 4.1 g/dL (3.2-4.6); ALKALINE PHOSPHATASE 92 IU/L (56-112); ASPARTATE AMNIOTRANSFERASE,AST 19 IU/L (5-25); BILIRUBIN TOTAL 0.4 mg/dL (0.1-1.3); PROTEIN TOTAL,TP 7.6 g/dL (6.0-8.0)
[2024-11-28 17:46] LABS: TROPONIN I 8.1 pg/mL (4.0-60.3)
[2024-11-28] MEDS: Potassium Chloride 20 MEQ Tab.ER PO STA (18:19)
== END 2024-11-28 18:21 | disposition home or self-care (01) ==
LOC: FB.ED 16:45
DX: R07.89 Other chest pain (principal); N17.9 Acute kidney failure, unspecified; E86.0 Dehydration; I10 Essential (primary) hypertension; R06.89 Other abnormalities of breathing; E78.00 Pure hypercholesterolemia, unspecified; Z79.82 Long term (current) use of aspirin; Z79.899 Other long term (current) drug therapy
CPT/HCPCS: 36415; 80053; 83880; 84484; 85025; 93005; 93010; 96360; 99284; 99285; A9270; J7030